=== PATIENT | female | born 1990 | race Caucasian/White ===

== ENCOUNTER 2020-03-12 08:27 | Emergency (ER) | payer OTHER, MEDICAID, SELFPAY ==
[2020-03-12 08:35] VITALS: BP 124/75; PULSE 72; RESP 19; TEMP 37; O2SAT 99; BMI 35.4
[2020-03-12 09:08] LABS: COVID19 -Nasal RAPID Negative (Negative)
--- NOTE | 2020-03-12 09:12 | ED_ITS ---
HPI - URI/Sore Throat General Chief Complaint: Upper Respiratory Symptoms Stated Complaint: covid Time Seen by Provider: 03/12/20 08:58 Source: patient Mode of arrival: Ambulatory Limitations: no limitations History of Present Illness HPI Narrative: Patient here for cough cold congestion chills. Dry cough. Patient states a co-worker was sick about a week ago with same symptoms. Patient started symptoms yesterday. History of pneumonia 2 years ago had several episodes in 1 year. Patient does not smoke. Denies . Does not test. Patient has used inhaler in the past. Patient concerned she may have coronavirus Complaint: cough and nasal congestion Related Data Previous Rx's Medication Instructions Recorded albuterol sulfate [Ventolin HFA] 2 inhalation INHALATION QID PRN 03/12/20 #6.7 gram benzonatate [Tessalon Perles] 100 mg PO TID PRN #20 cap 03/12/20 Review of Systems Review of Systems Narrative: GENERAL: Complains chills, denies fatigue, malaise, fever, sweats. HEENT: Denies sinus pain, ear pain, sore throat, difficulty swallowing RESPIRATORY: Denies dyspnea, complains of congestion and cough CARDIOVASCULAR: Denies chest pain, palpitations, edema, GASTROINTESTINAL: Denies nausea, vomiting, abdominal pain, diarrhea, constipation, melena. : Denies dysuria, frequency, hematuria MUSCULOSKELETAL: denies muscle or bony pain SKIN: Denies rash, skin lesions NEUROLOGIC: Denies weakness, headache, numbness, change in speech, confusion PSYCHIATRIC: No SI or HI or hallucinations ROS Unobtainable: All systems reviewed & are unremarkable except as noted in HPI and below Patient History Social History Smoking Status: Never smoker Smoking Status: Never smoker alcohol intake frequency: a few times a week Substance Use Type: does not use Exam Narrative Exam Narrative: GENERAL: patient appears stated age. Well-nourished, well-developed patient, in no distress, not toxic not dyspneic HEAD: Normocephalic. EYES: Pupils equal round and reactive. No scleral icterus. No injection no discharge ENT: Mucous membranes moist. No drooling no tongue elevation no trismus no malocclusion NECK: Trachea midline. Non tender CARDIOVASCULAR: Regular rate and rhythm without murmurs, gallops, or rubs. RESPIRATORY: Clear to auscultation. Breath sounds equal bilaterally. No wheezes, rales, or rhonchi. Has dry cough speaks full sentences. No retractions GASTROINTESTINAL: Abdomen soft, non-tender, nondistended. EXTREMITIES: No gross deformities. BACK: Nontender without deformity or crepitance. No flank tenderness. NEURO: AOx4. SKIN: Warm and dry PSYCH: Not anxious, is cooperative Initial Vital Signs Initial Vital Signs: Vital Signs Temperature 98.6 F 03/12/20 08:35 Pulse Rate 72 03/12/20 08:35 Respiratory Rate 19 03/12/20 08:35 Blood Pressure 124/75 03/12/20 08:35 Pulse Oximetry 99 03/12/20 08:35 Course Orders Ordered: Discontinued Medications Benzonatate (Tessalon Perles) 100 mg PO NOW ONE Stop: 03/12/20 09:16 Last Admin: 03/12/20 09:27 Dose: 100 mg Documented by: NOLVIA Reevaluation(s) Reevaluation #1: Reviewed coronavirus results are negative. Patient agrees no antibiotics at this time. Has supportive care with breathing treatments and cough medication Time: 09:19 Vital Signs Vital signs: Vital Signs - 8 hr 03/12/20 08:35 Temperature 98.6 F Pulse Rate 72 Respiratory Rate 19 Blood Pressure 124/75 Pulse Oximetry 99 MDM - URI/Sore Throat Lab Data Attestation: I reviewed the patient's lab results. Labs: Lab Results 03/12/20 Range/Units 08:45 COVID-19 PCR Negative (Negative) [facility] Narrative Medical decision making narrative: At this time no further labs or imaging indicated. Vital signs reviewed. No tachypnea or tachycardia or hypoxia or fever. Clear lung sounds. Supportive care for bronchitis Discharge Plan Departure Patient Disposition: Home Clinical Impression: Bronchitis Discharge Date/Time: 03/12/20 09:39 Instructions: DI for Acute Bronchitis Activity Restrictions/Additional Instructions: Keep well hydrated. May take ibuprofen for pain. Use inhaler 2 puffs every 4 hours as needed for cough. Return if worse or if any questions or concerns. Called provided clinic list to [facility] to see in 1 or 2 weeks. Prescription for cough medication and inhaler has been sent to your [facility] here in [facility] Prescriptions: New benzonatate [Tessalon Perles] 100 mg capsule 100 mg PO TID PRN (Reason: cough) Qty: 20 RF: 0 albuterol sulfate [Ventolin HFA] 90 mcg/actuation HFA aerosol inhaler 2 inhalation INHALATION QID PRN (Reason: shortness of breath or wheezing) Qty: 6.7 RF: 0 Referrals: [facility] [Outside] Stand Alone Forms: Work Release Note
[2020-03-12] MEDS: BENZONATATE 100 MG CAPSULE PO (09:27)
[2020-03-12 09:36] VITALS: BP 110/69; PULSE 82; RESP 22; O2SAT 98
== END 2020-03-12 09:39 | disposition home or self-care (01) ==
PROVIDERS: Emergency Provider Emergency Medicine
DX: J40 Bronchitis, not specified as acute or chronic (principal)
CPT/HCPCS: 87635; 99283